=== PATIENT | male | born 1945 | race Caucasian/White ===

== ENCOUNTER → 2021-11-14 09:29 | Outpatient (CLI) | payer MEDICARE, SELFPAY ==
--- NOTE | ~2021-11-14 | MR_ITS ---
EXAMINATION: MR shoulder RT wo con DATE: 11/14/2021 10:01 INDICATION: Right shoulder pain. TECHNIQUE: Magnetic resonance imaging (MRI) of the right shoulder was performed without intravenous c ontrast. Sequences included axial PD-weighted FS FSE, coronal oblique PD-weighted FS FSE and T2-weigh jes FS FSE, and sagittal oblique T2-weighted FS FSE and T1-weighted FSE. COMPARISON: None. FINDINGS: Coracoacromial arch: The acromion undersurface is curved in morphology (type II). There is severe acromioclavicular joint osteoarthritis including inferiorly directed osteophytes. Subacromial spurring is noted. There is sev ere subacromial/subdeltoid bursitis. Rotator cuff: There is a full-thickness tear of supraspinatus and interspinous tendons measuring 4.5 cm anterior to posterior by 5.0 cm proximal to distal. There is mild teres minor tendinopathy. There is severe supr aspinatus tendinopathy. There is volume loss and mild fatty atrophy of supraspinatus and infraspinatu s muscle bellies. Biceps tendon and glenoid labrum: There is a complete tear of proximal biceps tendon. There is degenerative tearing of the glenoid labr um. Fluid: There is a large glenohumeral joint effusion. Bones/cartilage: There is shallow partial-thickness cartilage loss of glenoid. There is partial-thickness cartilage lo ss of humeral head, deep at the superior articular surface. Osteophytes are noted. IMPRESSION: 1. Massive full-thickness rotator cuff tear. 2. Moderate glenohumeral joint chondrosis. 3. Severe acromioclavicular joint osteoarthritis. 4. Complete tear of proximal biceps tendon. 5. Large glenohumeral joint effusion and severe subacromial/subdeltoid bursitis. Reviewed, dictated and finalized at location A. BUILDER IMPRESSION: 1. Massive full-thickness rotator cuff tear. 2. Moderate glenohumeral joint chondrosis. 3. Severe acromioclavicular joint osteoarthritis. 4. Complete tear of proximal biceps tendon. 5. Large glenohumeral joint effusion and severe subacromial/subdeltoid bursitis .
== END ==
PROVIDERS: Visit Provider Physician Assistant Surgical
DX: M19.011 Primary osteoarthritis, right shoulder (principal); M75.101 Unspecified rotator cuff tear or rupture of right shoulder, not specified as traumatic; S46.211A Strain of muscle, fascia and tendon of other parts of biceps, right arm, initial encounter; X58.XXXA Exposure to other specified factors, initial encounter
CPT/HCPCS: 73221